=== PATIENT | male | born 2000 | race African-American/Black ===

== ENCOUNTER 2024-10-28 16:21 | Emergency (ER) | payer OTHER, SELFPAY ==
--- NOTE | 2024-10-28 16:24 | ED.EYEPROB ---
HPI - Eye Problem General Chief complaint: Eye Problems Stated complaint: right eye irritation Time Seen by Provider: 10/28/24 16:47 Source: patient and RN notes reviewed Mode of arrival: ambulatory Limitations: no limitations History of Present Illness HPI Narrative: 23-year-old male presents with concern for right eye redness, irritation, draining started this afternoon. Denies vision changes MD chief complaint: eye redness Related Data Home Medications ?Medication ?Instructions ?Recorded ?Confirmed ?Last Taken ?Type aripiprazole 5 mg tablet 5 mg PO QAM 10/28/24 10/28/24 Unknown History escitalopram oxalate 10 mg tablet 10 mg PO QHS 10/28/24 10/28/24 Unknown History escitalopram oxalate 5 mg tablet 5 mg PO QHS 10/28/24 10/28/24 Unknown History lisdexamfetamine 50 mg capsule 50 mg PO QAM 10/28/24 10/28/24 Unknown History trazodone 100 mg tablet 100 mg PO QHS 10/28/24 10/28/24 Unknown History Allergies Allergy/AdvReac Type Severity Reaction Status Date / Time amoxicillin Allergy Mild Unknown Verified 10/28/24 16:40 Review of Systems Review of Systems: CONSTITUTIONAL: Denies malaise, chills, sweats, or fever. EYES: Denies visual changes. Reports right eye redness, irritation, discharge. ENT: Denies rhinorrhea, congestion, sinus pain, otalgia or sore throat. SKIN: Denies rash or itching. NEUROLOGIC: Denies numbness, weakness, or headache. PSYCHIATRIC: Denies anxiety or depression. All systems reviewed & are unremarkable except as noted in HPI and below PMFSH Comments At time of signature, agree with nursing past medical, surgical, social and family history. There is no relevant family history pertinent to the presenting complaint Exam Narrative: GENERAL: Well-appearing, well-nourished, and in no acute distress. HEAD: Normocephalic, atraumatic. EYES: PERRLA, sclera clear, and EOMI. No nystagmus. Right sclera and conjunctivae injected. Upper and lower eyelid unremarkable, no periorbital edema noted ENT: Nares clear, turbinates pink, no rhinorrhea or epistaxis. Mucous membranes moist. TM pearly longo with sharp light reflex bilaterally; no tragal tenderness. NECK: Supple. CHEST: No respiratory distress. Speaks in full sentences. HEART: Regular rate and rhythm. SKIN: Warm, dry, no visible rash. NEURO: Alert and oriented x3. PSYCH: Normal mood and affect Course Course Emergency Course: Patient is aware of diagnosis, understands and agrees to treatment plan. Anticipatory guidance given. Patient agrees to follow-up as directed and is aware of reasons to seek care at the emergency department. Portions of this record may have been created with voice recognition software Level of Care: Express Care Visit Vital Signs Vital signs: Reviewed. MDM - Eye Problem MDM Narrative Medical decision making narrative: Consideration of the following conditions may be warranted for the presenting problem, they are not final diagnoses: Bacterial conjunctivitis, allergic conjunctivitis, viral conjunctivitis, foreign body, blepharitis, chalazion, hordeolum, corneal abrasion, preseptal cellulitis, orbital cellulitis. No evidence of proptosis, ophthalmoplegia, vision loss, pain with eye movement. Exam findings show no acute concerns or changes; patient is non-toxic appearing and is in no distress. Patient is appropriate for outpatient treatment and follow-up. Critical Care Time Critical Care Time Critical Care Time: No Discharge Plan Discharge Clinical Impression: Conjunctivitis Patient Disposition: Home, Self-Care Condition: Stable Instructions: Conjunctivitis (ED) Additional Instructions: Do not touch or rub your eye. Use a warm or cool washcloth on your eye for comfort Use eyedrops as directed Practice good handwashing and hygiene to prevent spread of infection You may take Tylenol or ibuprofen for pain Follow-up with PCP or bench worker binding if condition is not improving in 2-3days. Go to the emergency room if you have pain behind your eye, pressure behind your eye, difficulty seeing, or other severe symptoms Patient Language: Slovenian Prescriptions: New polymyxin B sulf-trimethoprim 10,000 unit- 1 mg/mL drops 1 drp RIGHT EYE Q3H 7 Days Qty: 10 0RF Rx Instructions: while awake; do not exceed 6 doses in 24 hours No Action trazodone 100 mg tablet 100 mg PO QHS escitalopram oxalate 10 mg tablet 10 mg PO QHS aripiprazole 5 mg tablet 5 mg PO QAM escitalopram oxalate 5 mg tablet 5 mg PO QHS lisdexamfetamine 50 mg capsule 50 mg PO QAM Follow-up/Referrals: UNKNOWN,DOCTOR [Primary Care Provider] - Stand Alone Forms: Work/School Release IP Time of Disposition: 16:46
[2024-10-28 16:32] VITALS: BP 124/83; PULSE 72; RESP 16; TEMP 36.7; O2SAT 100
== END 2024-10-28 16:55 | disposition home or self-care (01) ==
PROVIDERS: Emergency Provider Nurse Practitioner
DX: H10.9 Unspecified conjunctivitis (principal); Z79.899 Other long term (current) drug therapy
CPT/HCPCS: 99213; G0463

== ENCOUNTER 2025-03-07 19:31 | Emergency (ER) | payer OTHER, SELFPAY ==
--- NOTE | ~2025-03-07 | XR_ITS ---
EXAM: XR abdomen/kub 1V DATE: 03/07/2025 20:05 HISTORY: Left flank pain with hematuria 4-5 DAYS . COMPARISON: None available. FINDINGS: Lung bases and superior abdomen excluded from the [id number]. Normal bowel gas pattern. No organomegaly. 4 mm calcification in the left pelvis. Regional bones and soft tissues normal for a ge. IMPRESSION: 4 mm left pelvic desiccation, may represent a phlebolith or distal ureteral stone. Reviewed, dictated and finalized at location K.
[2025-03-07 19:39] VITALS: BP 135/77; PULSE 68; RESP 18; TEMP 36.7; O2SAT 100
--- NOTE | 2025-03-07 19:45 | ED_ITS ---
HPI - General Adult General Chief complaint: Urogenital-Male Stated complaint: Back Pain Time Seen by Provider: 03/07/25 19:45 Source: patient Mode of arrival: ambulatory Limitations: no limitations History of Present Illness HPI narrative: 24-year-old male patient presents to the [facility] with complaints of lower back pain more so on the left side. Patient states he has had back pain for about for 5 days. 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 Patient states that he has tried some meloxicam, some muscle relaxants and some salon pad patches. Patient states he has also tried a massage done and some stretching and states that really has not relieve much pain. Patient denies any pain with urination that he is aware of. Denies any fevers body aches or chills. Related Data Home Medications ?Medication ?Instructions ?Recorded ?Confirmed ?Last Taken ?Type aripiprazole 5 mg tablet 5 mg PO QAM 10/28/24 10/28/24 Unknown History escitalopram oxalate 10 mg tablet 10 mg PO QHS 10/28/24 10/28/24 Unknown History escitalopram oxalate 5 mg tablet 5 mg PO QHS 10/28/24 10/28/24 Unknown History lisdexamfetamine 50 mg capsule 50 mg PO QAM 10/28/24 10/28/24 Unknown History trazodone 100 mg tablet 100 mg PO QHS 10/28/24 10/28/24 Unknown History Allergies Allergy/AdvReac Type Severity Reaction Status Date / Time amoxicillin Allergy Mild Unknown Verified 03/07/25 19:35 Review of Systems Review of Systems: CONSTITUTIONAL: Denies fever, chills, or sweats. EYES: Denies visual changes, redness, or discharge. ENT: Denies rhinorrhea, congestion, sore throat, or otalgia. CARDIOVASCULAR: Denies chest pain, palpitations, or edema. RESPIRATORY: Denies cough or dyspnea. GASTROINTESTINAL: Denies abdominal pain, nausea, vomiting, or diarrhea. GENITOURINARY: Denies dysuria or hematuria. SKIN: Denies rash or itching. MUSCULOSKELETAL: Positive low back pain, denies joint pain, or myalgia. NEUROLOGIC: Denies headache, numbness, or weakness. PSYCHIATRIC: Denies anxiety or depression. [facility] Past Medical History Medical History (Updated 03/07/25 @ 20:22 by CATALINA Arzate) No significant past medical history Comments At the time of my signature I agree with nursing past medical history, surgical, social, and family history. There is no relevant family history pertinent to the presenting complaint. Exam Narrative: GENERAL: Well-appearing, well-nourished, and in no acute distress. HEAD: Normocephalic, atraumatic. EYES: PERRLA and EOMI. ENT: Nares clear, no rhinorrhea or epistaxis. Mucous membranes moist. NECK: Supple. No lymphadenopathy CHEST: Clear to auscultation. No respiratory distress. HEART: Regular rate and rhythm. No murmur heard. Normal peripheral pulses. ABDOMEN: Soft, nontender, nondistended, normal active bowel sounds. EXTREMITIES: Normal range of motion. No edema. BACK: Patient is able to ambulated without assistance. Pt is seated on the stretcher in no obvious distress. No surface trauma noted. Mild muscle tenderness to Palpation to the left lateral side. No obvious spasm or mass. No step-offs or deformity noted to the cervical, thoracic or lumbar spine to firm Palpation at the midline. Mild CVA tenderness to percussion to the left side. No saddle anesthesia. ROM: able to stand erect. Normal flexion, extension, Lateral bending and rotation without limitation or complaint of pain. SKIN: Warm, dry, no rash. NEURO: No focal deficits. Alert and oriented x3. Course Course Level of Care: Express Care Visit Reevaluation(s) Reevaluation #1: Re-evaluated patient notified him that the x-ray does suggest he most likely does have a kidney stone that is causing this pain. Discussed with patient that we will give him a strainer and will give him some medication that is going to make him pee a lot and he needs to call follow-up with the urologist and was referred to him today. Discussed with patient if the pain continues to get worse or he is peeing a lot of blood that he needs go the ER for further evaluation. Patient verbalized understanding denies any other questions or concerns at this time. Date: 03/07/25 Time: 20:25 Vital Signs Vital signs: Vital Signs Temperature 36.7 C 03/07/25 19:39 Pulse Rate 68 03/07/25 19:39 Respiratory Rate 18 03/07/25 19:39 Blood Pressure 135/77 03/07/25 19:39 Pulse Oximetry 100 03/07/25 19:39 Oxygen Delivery Room Air 03/07/25 19:39 Temperature 36.7 C 03/07/25 19:39 Pulse Rate 68 03/07/25 19:39 Respiratory Rate 18 03/07/25 19:39 Blood Pressure 135/77 03/07/25 19:39 Pulse Oximetry 100 03/07/25 19:39 Oxygen Delivery Room Air 03/07/25 19:39 Vital signs reviewed. Medical Decision Making MDM Narrative Medical decision making narrative: Plan care for patient is to check a urine to see if there is any blood that would indicate kidney stones. Patient has really good range of motion for somebody that could be having of muscle strain and therefore we will rule this out as another possible cause. If the blood is presently a further work him up for a kidney stone if there is no blood in the urine dip we may just go ahead and treat him for a muscle strain. Differential Diagnosis Differential Diagnosis: Acute musculoskeletal injury or exacerbation, neurological emergency, acute coronary syndrome, kidney stones, epidural abscess or hematoma,Cauda Equina Syndrome, herniation. Vital Signs Vital Signs: Vital Signs Temperature 36.7 C 03/07/25 19:39 Pulse Rate 68 03/07/25 19:39 Respiratory Rate 18 03/07/25 19:39 Blood Pressure 135/77 03/07/25 19:39 Pulse Oximetry 100 03/07/25 19:39 Oxygen Delivery Room Air 03/07/25 19:39 Temperature 36.7 C 03/07/25 19:39 Pulse Rate 68 03/07/25 19:39 Respiratory Rate 18 03/07/25 19:39 Blood Pressure 135/77 03/07/25 19:39 Pulse Oximetry 100 03/07/25 19:39 Oxygen Delivery Room Air 03/07/25 19:39 Lab Data Labs: Lab Results 03/07/25 Range/Units 19:56 POC Urine Color Dark POC Urine Clarity Clear POC Urine pH 6.0 POC Ur Specif [place] 1.030 POC Urine Protein Trace (Negative) POC Ur Glucose (UA) Negative (Negative) POC Urine Ketones Negative (Negative) POC Urine Blood Trace (Negative) POC Urine Nitrite Negative (Negative) POC Urine Bilirubin Negative (Negative) POC Urine Urobilinogen 1.0 POC U Leukocyte Esteras Negative (Negative) Imaging Data Radiologist's impression: [facility] [address] [place] [address] XRay Report Signed Patient: Nahun Lee : 2000 MR#: [id number] Age: 24 Acct:[id number] Loc: [facility] ADM Date: 03/07/25Attending Dr: Ordering Physician: Adriana Tillman COVERAGE SPECIALIST RN Date of Service: 03/07/25 Procedure(s): XR abdomen/kub 1V Accession Number(s): [id number] cc: [employer] PHYSICIAN; Adriana Tillman COVERAGE SPECIALIST RN~ EXAM: XR abdomen/kub 1V DATE: 03/07/2025 20:05 HISTORY: Left flank pain with hematuria 4-5 DAYS . COMPARISON: None available. FINDINGS: Lung bases and superior abdomen excluded from the [id number]. Normal bowel gas pattern. No organomegaly. 4 mm calcification in the left pelvis. Regional bones and soft tissues normal for age. IMPRESSION: 4 mm left pelvic desiccation, may represent a phlebolith or distal ureteral stone. Reviewed, dictated and finalized at location K. Please be advised this is a medical document. It is intended for [id number] communication. It is written in medical language and may contain unfamiliar abbreviations or verbiage. Medical documents are intended to carry relevant information, facts as evident, and the clinical opinion of the practitioner at the time of the encounter. This report may have been done utilizing a voice recognition system. Attempts have been made to correct errors. However, there may be uncorrected grammatical, spelling, and recognition errors present. The file time of this note does not necessarily represent the time of service. Dictated By: Avila Veloz MD 03/07/252009 Signed By: <Electronically signed by Avila Veloz MD in OV> Critical Care Time Critical Care Time Critical Care Time: No Discharge Plan Discharge Clinical Impression: Kidney calculi Patient Disposition: Home Condition: Stable Instructions: Antibiotic Form, Kidney Stones (ED), How to Strain Your Urine (ED) Additional Instructions: Kidney stones are formed when salts, minerals, and other substances normally found in the urine clump together. They can be as small as grains of sand or, rarely, as large as golf balls. While the stone is travelling through the ureter, which is the tube that carries urine from the kidney to the bladder, you will probably feel pain. The pain may be mild or very severe. You may also have some blood in your urine. As soon as the stone reaches the bladder, any intense pain should go away. If a stone is too large to pass on its own, you may need a medical procedure to help you pass the stone. The doctor has checked you carefully, but problems can develop later. If you notice any problems or new symptoms,?get medical treatment right away. Follow-up care is a christianson part of your treatment and safety.?Be sure to make and go to all appointments, and call your doctor or nurse advice line ([phone]?in most provinces and territories) if you are having problems. It's also a good idea to know your test results and keep a list of the medicines you take. How can you care for yourself at home? Drink plenty of fluids. If you have kidney, heart, or liver disease and have to limit fluids, talk with your doctor before you increase the amount of fluids you drink.Take pain medicines exactly as directed. Call your doctor or nurse advice line if you think you are having a problem with your medicine. If the doctor gave you a prescription medicine for pain, take it as prescribed. If you are not taking a prescription pain medicine, ask your doctor if you can take an [id number] medicine. Read and follow all instructions on the label.Your doctor may ask you to strain your urine so that you can collect your kidney stone when it passes. You can use a kitchen strainer or a tea strainer to catch the stone. Store it in a plastic bag until you see your doctor again. Preventing future kidney stones Some changes in your diet may help prevent kidney stones. Depending on the cause of your stones, your doctor may recommend that you: Drink plenty of fluids. If you have kidney, heart, or liver disease and have to limit fluids, talk with your doctor before you increase the amount of fluids you drink.Limit coffee, tea, and alcohol. Also avoid grapefruit juice.Do not take more than the recommended daily dose of vitamins C and D.Avoid antacids such as Gaviscon or Tums.Limit the amount of salt (sodium) in your diet.Eat a balanced diet that is not too high in protein.Limit foods that are high in a substance called oxalate, which can cause kidney stones. These foods include dark green vegetables, rhubarb, chocolate, wheat bran, nuts, cranberries, and beans. When should you call for help? Call your doctor or nurse advice line now?or seek immediate medical care if: You cannot keep down fluids.Your pain gets worse.You have a fever or chills.You have new or worse pain in your back just below your rib cage (the flank area).You have new or more blood in your urine. Watch closely for changes in your health, and be sure to contact your doctor or nurse advice line if: You do not get better as expected. Patient Language: Mongolian Prescriptions: New tamsulosin 0.4 mg capsule 0.4 mg PO DAILY Qty: 14 0RF No Action trazodone 100 mg tablet 100 mg PO QHS escitalopram oxalate 10 mg tablet 10 mg PO QHS aripiprazole 5 mg tablet 5 mg PO QAM escitalopram oxalate 5 mg tablet 5 mg PO QHS lisdexamfetamine 50 mg capsule 50 mg PO QAM Follow-up/Referrals: ladonna [Other] Isaias Paiz MD [Physician] - PHYSICIAN,[employer] [Primary Care Provider] - Time of Disposition: 20:21
[2025-03-07 19:58] LABS: EDUAAPPEAR Clear; EDUABILI Negative (Negative); EDUABLOOD Trace (Negative); EDUACOLOR1 Dark; EDUAGLUCOSE Negative (Negative); EDUAKETONE Negative (Negative); EDUALEUKO Negative (Negative); EDUANITRATE Negative (Negative); EDUAPH 6.0; EDUAPROTEIN Trace (Negative); EDUASPGRAVITY 1.030; EDUAUROBILI 1.0
== END 2025-03-07 20:27 | disposition home or self-care (01) ==
PROVIDERS: Emergency Provider Nurse Practitioner Family
DX: N20.0 Calculus of kidney (principal)
CPT/HCPCS: 74018; 81003; 99213; G0463

== ENCOUNTER 2025-03-26 15:32 | Outpatient (CLI) | payer OTHER, SELFPAY ==
--- NOTE | ~2025-03-26 | XR_ITS ---
XR abdomen/kub 1V 03/26/2025 15:48 INDICATION: Possible left ureteral stone TECHNIQUE: KUB COMPARISON: 03/07/2025 FINDINGS: Bowel gas pattern is normal. There is no evidence of free air, mass, organomegaly, ascites or obstruction. Stable left pelvic calcification, most likely phlebolith. Distal ureteral stone not excluded. Consider correlation with CT. The bones appear intact. IMPRESSION: 1: Stable position of left pelvic calcification, most likely phlebolith. Consider CT correlation if there is concern for ureteral stone. Reviewed, dictated and finalized at location O. IMPRESSION: 1: Stable position of left pelvic calcification, most likely phlebolith. Consid er CT correlation if there is concern for ureteral stone.
== END 2025-03-26 15:33 | disposition home or self-care (01) ==
LOC: MICIMG 15:35
PROVIDERS: PCP Urology; Visit Provider Urology
DX: N20.1 Calculus of ureter (principal)
CPT/HCPCS: 74018